=== PATIENT | female | born 1965 | race Caucasian/White ===

== ENCOUNTER → 2017-02-03 | Outpatient (CLI) | payer OTHER ==
[~2017-02-03] MED LIST: ANUSOL-HC25 MG R; ASPIRIN81 M1 PO; COLACE100 MG PO; DULOXETINE HCL30 MG PO; GAVISCON; GAVISCON PO; KCL; LASIX20 MG PO; LEVOTHYROXIN0.025 M1 PO; LEVOTHYROXIN0.025 MG PO; LINZESS145 MC1 PO; LISINOPRIL10 MG PO; NEURONTIN300 MG PO; POTASSIUM CHLO10 MEQ PO; PRAVACHOL20 MG PO; PREDNISONE10 MG PO; PROTONIX40 MG PO; ZANTAC150 MG PO; [UNRECOGNIZED DRUG - OTHER]
== END | disposition home or self-care (01) ==
LOC: US 09:08
DX: R10.13 Epigastric pain (principal)

== ENCOUNTER → 2017-06-20 | Outpatient (CLI) | payer OTHER | END | disposition home or self-care (01) | LOC: CARD 09:24 | DX: I08.3 Combined rheumatic disorders of mitral, aortic and tricuspid valves (principal) ==

== ENCOUNTER → 2018-02-16 | Outpatient (CLI) | payer OTHER ==
[~2018-02-16] MED LIST changes: +DEXILANT60 M1 PO; +LOPRESSOR50 M1 PO; +RANITIDINE HCL150 M1 PO; +SINGULAIR10 M1 PO
== END | disposition home or self-care (01) ==
LOC: CARD 01:59
DX: I77.1 Stricture of artery (principal); I10 Essential (primary) hypertension

== ENCOUNTER 2019-02-19 23:34 | Emergency (ER) | payer SELFPAY ==
[~2019-02-19] VITALS: Ht 160 cm; Wt 80.7 kg
--- NOTE | ~2019-02-19 | EKG ---
[place], [place] ELECTROCARDIOGRAM REPORT NAME: FROY SELBY UNIT #: [id number] ROOM: DOCTOR: EPIPHANY DRAFT REPORT BIRTHDATE: [birth year] [facility] Test Date: 2019-02-19 Test Time: 23:39:30 Pat Name: FROY SELBY Department: Room: Gender: F Tea Blender: Cristin Alejandro : 1965 Requested By: ADEN GARZA Order Number: [id number] Reading MD: Angel London MD Measurements Intervals [place] Rate: 107 P: 21 MO: 132 QRS: 59 QRSD: 82 T: 27 QT: 330 QTc: 441 Interpretive Statements Sinus tachycardia Borderline T wave abnormalities Electronically Signed On 02-23-2019 13:18:22 PDT by Angel London MD CM:EKGRPT:ELECTROCARDIOGRAM REPORT [id number] ADEN ULRICH DRAFT REPORT ADEN GARZA DO
[2019-02-19 23:49] LABS: BASO % 0.3 % (0.0-1.0); EOS # 0.1 10*3/uL (0.0-0.4); EOS % 0.9 % (1.0-4.0); HEMATOCRIT 41.8 % (37.0-47.0); HEMOGLOBIN 14.2 g/dl (12.0-16.0); LYMPH # 2.6 10*3/uL (1.3-4.4); LYMPH % 24.4 % (27.0-41.0); MEAN CELL VOLUME 87.3 fl (81.0-99.0); MEAN CORPUSCULAR HGB 29.6 pg (27.0-31.0); MEAN PLATELET VOLUME 10.3 fl (9.6-12.3); MONO # 0.8 10*3/uL (0.1-1.0); MONO % 7.9 % (3.0-9.0); NEUT # 6.9 10*3/uL (2.3-7.9); NEUT % 66.1 % (47.0-73.0); PLATELET COUNT AUTOMATED 304 10*3/uL (130-400); RED BLOOD COUNT 4.79 10*6/uL (4.10-5.10); RED CELL DISTRI WIDTH 13.3 % (0-14.5); WHITE BLOOD COUNT 10.4 10*3/uL (4.8-10.8)
[2019-02-19 23:59] LABS: ACT PARTIAL THROMBO TIME 27.1 SECONDS (20.8-31.5)
[2019-02-20 00:13] LABS: ALBUMIN 3.6 gm/dl (3.1-4.5); ALKALINE PHOSPHATASE 96 U/L (45-117); BUN 10 mg/dl (7-24); CHLORIDE 101 mmol/L (98-107); CREATININE 1.22 mg/dL (0.55-1.02); POTASSIUM 3.9 mmol/L (3.5-5.1); SGOT/AST 12 IU/L (3-35); SGPT/ALT 16 U/L (12-78); SODIUM 137 mmol/L (136-145); TOTAL PROTEIN 7.6 gm/dL (6.4-8.2); TROPONIN I < 0.015 ng/ml (<0.045)
== END 2019-02-20 01:09 | disposition home or self-care (01) ==
LOC: ED 23:34
PROVIDERS: Student in an Organized Health Care Education/Training Program
DX: R07.89 Other chest pain (principal); K21.9 Gastro-esophageal reflux disease without esophagitis; J44.9 Chronic obstructive pulmonary disease, unspecified; I10 Essential (primary) hypertension; Z79.899 Other long term (current) drug therapy